=== PATIENT | male | born 1980 | race Caucasian/White ===

== ENCOUNTER 2019-06-12 14:06 | Emergency (ER) | payer SELFPAY ==
[~2019-06-12] VITALS: Ht 177.8 cm; Wt 97.0 kg
[2019-06-12 14:08] VITALS: BP 142/79
[2019-06-12] MEDS ORDERED: METHOCARBAMOL 750 MG TABLET PO ONE (14:30)
[2019-06-12] MEDS ORDERED: KETOROLAC 30 MG/1 ML IM ONE (14:30)
[2019-06-12] MEDS ORDERED: METHOCARBAMOL 750 MG TABLET ONE (14:32)
[2019-06-12] MEDS ORDERED: KETOROLAC 30 MG/1 ML ONE (14:32)
--- NOTE | 2019-06-12 15:07 | NUR ---
Pt alet and resting on [facility]. Icepack applied.
--- NOTE | 2019-06-12 16:04 | NUR ---
At time of d/c, pt alert, oriented and ambulatory. Pt educated on crutches, home care, prescriptions, OTC meds and follow-up. Pt VU. Pt ambulated out of ER.
== END 2019-06-12 17:16 | disposition home or self-care (01) ==
LOC: ED 16:15
DX: S80.01XA Contusion of right knee, initial encounter (principal); S70.11XA Contusion of right thigh, initial encounter; W22.8XXA Striking against or struck by other objects, initial encounter; Y93.89 Activity, other specified; Y92.69 Other specified industrial and construction area as the place of occurrence of the external cause; Y99.0 Civilian activity done for income or pay
CPT/HCPCS: 73552; 73564; 96372; 99284; J1885

== ENCOUNTER 2019-06-13 15:32 | Emergency (ER) | payer OTHER ==
[~2019-06-13] VITALS: Ht 177.8 cm; Wt 95.6 kg
[2019-06-13 15:56] VITALS: BP 109/34
== END 2019-06-13 16:22 | disposition home or self-care (01) ==
LOC: ED 16:10
DX: M25.561 Pain in right knee (principal); Z48.00 Encounter for change or removal of nonsurgical wound dressing
CPT/HCPCS: 99281